=== PATIENT | female | born 1980 | race Caucasian/White ===

== ENCOUNTER 2016-10-24 15:46 | Emergency (ER) | payer OTHER ==
[2016-10-24 16:10] VITALS: BMI 29.7
[2016-10-24 16:14] VITALS: RESP 18; TEMP 98.4; O2SAT 99
--- NOTE | 2016-10-24 17:18 | ED PDOC ---
Arrival/HPI - General Chief Complaint: Female Genitourinary Time Seen by Provider: 10/24/16 16:19 Historian: Patient - History of Present Illness Narrative History of Present Illness (Text): 10/24/16 17:14 A 36 year old female, who denies any past medical history, presents to the emergency department complaining of bilateral flank pain for the past several days. Patient notes dysuria and mild nausea. She reports initially experiencing episodes of non-bloody diarrhea, which has fully resolved. Patient was prescribed Augmentin by PMD 4 days ago for possible UTI, which has mildly improved her symptoms. She does says that the back pain is worse with movement. Patient denies any fever, chills, vomiting, abdominal pain, hematuria , chest pain, shortness of breath, cough or any other complaints. PMD: Dr. Montana Time/Duration: Other (several days) Symptom Course: Unchanged Quality: Other Context: Other Past Medical History - Provider Review Nursing Documentation Reviewed: Yes - Infectious Disease Hx of Infectious Diseases: None - Psychiatric Hx Substance Use: No - Surgical History Other/Comment: R breast surgery - Anesthesia Hx Anesthesia: Yes Hx Anesthesia Reactions: No Hx Malignant Hyperthermia: No Family/Social History - Physician Review Nursing Documentation Reviewed: Yes Family/Social History: No Known Family HX Smoking Status: Never Smoked Hx Alcohol Use: No Hx Substance Use: No Hx Substance Use Treatment: No Allergies/Home Meds Allergies/Adverse Reactions: Allergies No Known Allergies Allergy (Verified 01/22/13 14:20) Review of Systems - Physician Review All systems were reviewed & negative as marked: Yes - Review of Systems Constitutional: absent: Fevers, Night Sweats Respiratory: absent: SOB, Cough Cardiovascular: absent: Chest Pain Gastrointestinal: Diarrhea (which has fully resolved), Nausea. absent: Abdominal Pain, Vomiting Genitourinary Female: Dysuria. absent: Hematuria Musculoskeletal: Back Pain (bilateral flank pain) Physical Exam Vital Signs Reviewed: Yes Vital Signs Temp Pulse Resp BP Pulse Ox 10/24/16 18:00 74 18 115/78 99 10/24/16 16:14 98.4 F 79 18 113/74 99 Temperature: Afebrile Blood Pressure: Normal Pulse: Regular Respiratory Rate: Normal Appearance: Positive for: Well-Appearing, Non-Toxic, Comfortable Pain Distress: None Mental Status: Positive for: Alert and Oriented X 3 - Systems Exam Head: Present: Atraumatic, Normocephalic Pupils: Present: PERRL Conjunctiva: Present: Normal Mouth: Present: Moist Mucous Membranes Pharnyx: Present: Normal. No: ERYTHEMA, EXUDATE Neck: Present: Normal Range of Motion Respiratory/Chest: Present: Clear to Auscultation, Good Air Exchange. No: Respiratory Distress, Accessory Muscle Use Cardiovascular: Present: Regular Rate and Rhythm, Normal S1, S2. No: Murmurs Abdomen: Present: Normal Bowel Sounds. No: Tenderness, Distention, Peritoneal Signs Back: Present: Normal Inspection Upper Extremity: Present: Normal Inspection. No: Cyanosis, Edema Lower Extremity: Present: Normal Inspection. No: Edema Neurological: Present: GCS=15, CN II-XII Intact, Speech Normal Skin: Present: Warm, Dry, Normal Color. No: Rashes Psychiatric: Present: Alert, Oriented x 3, Normal Insight, Normal Concentration Medical Decision Making ED Course and Treatment: 10/24/16 17:14 Impression: A 36 year old female with bilateral flank pain. Patient notes dysuria and mild nausea. Differential Diagnosis included but are not limited to: Musculoskeletal vs. Renal stone vs. Pyelonephritis Plan: -- Abdomen and pelvis CT -- Transvaginal ultrasound -- Labs -- Urine culture and Urinalysis -- Toradol -- Reassess and disposition Progress Notes: Report Date : 10/24/2016 17:53:16 PROCEDURE: CT Abdomen and Pelvis without intravenous contrast Dictator : MILA NASH MD IMPRESSION: No evidence of urinary calculus or urinary tract Report Date : 10/24/2016 18:08:10 Procedure: Transvaginal ultrasound Dictator : Katrina Bryant MD IMPRESSION: 1.5 cm probable uterine fibroid within the posterior fundus. Bilateral ovaries were not visualized. 10/24/16 18:40 Patient with noted history. Labs are unremarkable. CT and sono are nondiagnostic. She has no pelvic pain, so the non-visualization of the ovaries is unlikely diagnostic. Pain is worse with movement, so will treat with nsaid and muscle relaxant and have her continue the abx for uti, and she will f/u with pmd. - Lab Interpretations Lab Results: 10/24/16 17:05 10/24/16 17:05 Lab Results 10/24/16 17:05: Sodium 142, Potassium 3.5 L, Chloride 104, Carbon Dioxide 25, Anion Gap 17, BUN 6 L, Creatinine 0.5, Est GFR ( Amer) > 60, Est GFR (Non -Af Amer) > 60, Random Glucose 103, Calcium 9.5, Total Bilirubin 0.4, AST 33, ALT 29, Alkaline Phosphatase 65, Total Protein 8.1, Albumin 4.4, Globulin 3.7, Albumin/Globulin Ratio 1.2, Lipase 34 10/24/16 17:05: Urine Color Yellow, Urine Appearance Clear, Urine pH 7.0, Ur Specific [place] <= 1.005, Urine Protein Negative, Urine Glucose (UA) Negative, Urine Ketones Negative, Urine Blood Moderate H, Urine Nitrate Negative, Urine Bilirubin Negative, Urine Urobilinogen 0.2, Ur Leukocyte Esterase Negative, Urine RBC 2 - 5, Urine WBC 0 - 2, Ur Epithelial Cells 1 - 3 10/24/16 17:05: WBC 6.2, RBC 4.63, Hgb 12.7, Hct 38.4, MCV 82.9, MCH 27.4, MCHC 33.1, RDW 13.1, Plt Count 421, MPV 11.2 H, Gran % 62.2, Lymph % (Auto) 26.9, [place] % (Auto) 9.5 H, Eos % (Auto) 0.6 L, Baso % (Auto) 0.8, Gran # 3.86, Lymph # 1.7, [place] # 0.6, Eos # 0.0, Baso # 0.05 I have reviewed the lab results: Yes - RAD Interpretation Radiology Orders: 10/24/16 16:41 ABD & PELVIS W/O PO OR IV CONT [CT] Stat TRANSVAGINAL [US] Stat - Medication Orders Current Medication Orders: Discontinued Medications Ketorolac Tromethamine (Toradol) 30 mg IVP STAT STA Stop: 10/24/16 16:43 Last Admin: 10/24/16 17:19 Dose: 30 mg - Scribe Statement The provider has reviewed the documentation as recorded by the Sharonibmarry Pittman Provider Scribe Attestation: All medical record entries made by the Scribe were at my direction and personally dictated by me. I have reviewed the chart and agree that the record accurately reflects my personal performance of the history, physical exam, medical decision making, and the department course for this patient. I have also personally directed, reviewed, and agree with the discharge instructions and disposition. Disposition/Present on Arrival - Present on Arrival Any Indicators Present on Arrival: No History of DVT/PE: No History of Uncontrolled Diabetes: No Urinary Catheter: No History of Decub. Ulcer: No History Surgical Site Infection Following: None - Disposition Have Diagnosis and Disposition been Completed?: Yes Diagnosis: Back pain Disposition: HOME/ ROUTINE Disposition Time: 18:45 Patient Plan: Discharge Condition: GOOD Additional Instructions: Take the medications as prescribed. Avoid heavy lifting. Continue your antibiotics (augmentin) as previously prescribed. Follow up with your primary care doctor. Return to the emergency department if any new concerning symptoms. Prescriptions: Baclofen [Lioresal] 1 cap PO TID PRN #15 tab PRN Reason: Pain, Moderate (4-7) Naproxen [Naprosyn] 500 mg PO BID PRN #20 tab PRN Reason: Pain Pantoprazole [Protonix] 1 tab PO DAILY #20 ect Referrals: Wilfred Montana MD [Primary Care Provider] - Follow up with primary Forms: [place] (Amharic)
[2016-10-24 17:28] LABS: BASO # 0.05 K/mm3 (0.0-2.0); BASO % 0.8 % (0.0-3.0); EOS % 0.6 % (1.5-5.0); GRAN # 3.86 (1.4-6.5); GRAN % 62.2 % (50.0-68.0); HEMATOCRIT 38.4 % (36.0-48.0); LYMPH # 1.7 (1.2-3.4); LYMPH % 26.9 % (22.0-35.0); MEAN CELL VOLUME 82.9 fl (80.0-105.0); MEAN CORPUSCULAR HEMOGLOBIN 27.4 pg (25.0-35.0); MEAN CORPUSCULAR HGB CONC 33.1 g/dl (31.0-37.0); MEAN PLATELET VOLUME 11.2 fl (7.0-11.0); MONO # 0.6 (0.1-0.6); MONO % 9.5 % (1.0-6.0); RED CELL DISTRIBUTION WIDTH 13.1 % (11.5-14.5); WHITE BLOOD COUNT 6.2 10^3/ul (4.5-11.0)
[2016-10-24 17:29] LABS: URINE BILIRUBIN NEGATIVE (NEGATIVE); URINE BLOOD MODERATE (NEGATIVE); URINE GLUCOSE (UA) NEGATIVE (NEGATIVE); URINE KETONE NEGATIVE (NEGATIVE); URINE LEUKOCYTE ESTERASE NEGATIVE Leu/uL (NEGATIVE); URINE PROTEIN NEGATIVE mg/dL (<30 mg/dL); URINE UROBILINOGEN 0.2 E.U./dL (<1 E.U./dL)
[2016-10-24 17:30] LABS: URINE APPEARANCE CLEAR (CLEAR); URINE COLOR YELLOW (YELLOW)
[2016-10-24 17:39] LABS: ALB/GLOB RATIO 1.2 (1.1-1.8); ALKALINE PHOSPHATASE 65 U/L (38-133); ALT/SGPT 29 U/L (7-56); AST/SGOT 33 U/L (15-39); BILIRUBIN,TOTAL 0.4 mg/dL (0.2-1.3); BLOOD UREA NITROGEN 6 mg/dL (7-21); CALCIUM 9.5 mg/dL (8.4-10.5); CARBON DIOXIDE 25 mmol/L (21-33); CHLORIDE 104 mmol/L (98-107); GFR AFRICAN-AMERICAN > 60; GLUCOSE,RANDOM 103 mg/dL (70-110); LIPASE 34 U/L (23-300); POTASSIUM 3.5 mmol/L (3.6-5.0); SODIUM 142 mmol/L (132-148); TOTAL PROTEIN 8.1 g/dL (5.8-8.3); URINE WBC 0 - 2 /hpf (0-6)
--- NOTE | 2016-10-24 17:55 | CT ---
PROCEDURE: CT Abdomen and Pelvis without intravenous contrast HISTORY: flank pain - r/o renal stones COMPARISON: None. TECHNIQUE: Without contrast.. Contrast Dose: 0 Radiation dose: Total exam DLP = 392.42 mGy-cm. This CT exam was performed using one or more of the following dose reduction techniques: Automated exposure control, adjustment of the mA and/or kV according to patient size, and/or use of iterative reconstruction technique. FINDINGS: LOWER THORAX: Unremarkable. LIVER: Unremarkable. No gross lesion or ductal dilatation. GALLBLADDER AND BILE DUCTS: Unremarkable. PANCREAS: Unremarkable. No gross lesion or ductal dilatation. SPLEEN: Unremarkable. ADRENALS: Unremarkable. No mass. KIDNEYS AND URETERS: Unremarkable. No hydronephrosis. No solid mass. No renal calculus or ureteral calculus. VASCULATURE: Unremarkable. No aortic aneurysm. BOWEL: Unremarkable. No obstruction. No gross mural thickening. APPENDIX: Unremarkable. Normal appendix. PERITONEUM: Unremarkable. No free fluid. No free air. LYMPH NODES: Unremarkable. No enlarged lymph nodes. BLADDER: Unremarkable. REPRODUCTIVE: Normal uterus obstruction. BONES: No acute fracture. OTHER FINDINGS: None. IMPRESSION: No evidence of urinary calculus or urinary tract
--- NOTE | 2016-10-24 18:09 | US ---
HISTORY: pelvic pain COMPARISON: None available. TECHNIQUE: Transabdominal pelvic ultrasound FINDINGS: UTERUS: Measures 8.2 x 4.8 x 6.3 cm. Anteverted. 1.5 x 1.0 x 1.5 cm posterior fundal uterine fibroid. ENDOMETRIUM: Measures 6 mm in diameter. CERVIX: 9 mm nabothian cyst. RIGHT OVARY: Not visualized. LEFT OVARY: Not visualized. FREE FLUID: No significant free fluid noted. OTHER FINDINGS: None. IMPRESSION: 1.5 cm probable uterine fibroid within the posterior fundus. Bilateral ovaries were not visualized.
[2016-10-24 18:23] VITALS: BP 115/78; PULSE 74
== END 2016-10-24 19:01 | disposition home or self-care (01) ==
LOC: ED 15:46
DX: M54.9 Dorsalgia, unspecified (principal)
CPT/HCPCS: 74176; 76830; 80053; 81001; 83690; 85025; 87086; 96374; 99283; J1885

== ENCOUNTER 2017-01-29 17:46 | Emergency (ER) | payer OTHER ==
[2017-01-29 17:46] VITALS: BMI 29.7
[2017-01-29 18:16] VITALS: RESP 18; TEMP 98
[2017-01-29] MEDS ORDERED: Sodium Chloride 0.9% 500 ML IV STA (19:08)
--- NOTE | 2017-01-29 19:48 | ED PDOC ---
Arrival/HPI - General Chief Complaint: Abdominal Pain Time Seen by Provider: 01/29/17 18:23 Historian: Patient - History of Present Illness Narrative History of Present Illness (Text): 01/29/17 19:05 A 36 year old female presents to the emergency department complaining of intermittent burning type epigastric and mid abdominal pain, which occurs before and after eating. Patient notes she was diagnosed with H.Pylori 1 month ago. Patient states that she is currently taking omeprazole and is having difficulty eating due to pain. Also, she notes having noticed slight bright red streak in stool today. Denies of any nausea, vomiting, diarrhea, fever, urinary symptoms, or any other complaints. Also, patient denies any past abdominal surgeries. PMD: Dr. Vazquez Past Medical History - Provider Review Nursing Documentation Reviewed: Yes - Infectious Disease Hx of Infectious Diseases: None - Cardiac Hx Cardiac Disorders: No - Pulmonary Hx Respiratory Disorders: No - HEENT Hx HEENT Disorder: No - Renal Hx Renal Disorder: No - Endocrine/Metabolic Hx Endocrine Disorders: No - Hematological/Oncological Hx Blood Disorders: No - Integumentary Hx Dermatological Disorder: No - Musculoskeletal/Rheumatological Hx Musculoskeletal Disorders: No - Gastrointestinal Other/Comment: H.Pylori - Genitourinary/Gynecological Hx Genitourinary Disorders: No - Psychiatric Hx Psychophysiologic Disorder: No Hx Substance Use: No - Surgical History Hx Breast Biopsy: Yes (right breast) Other/Comment: R breast surgery - Anesthesia Hx Anesthesia: Yes Hx Anesthesia Reactions: No Hx Malignant Hyperthermia: No Family/Social History - Physician Review Nursing Documentation Reviewed: Yes Family/Social History: No Known Family HX Smoking Status: Never Smoked Hx Alcohol Use: No Hx Substance Use: No Hx Substance Use Treatment: No Allergies/Home Meds Allergies/Adverse Reactions: Allergies No Known Allergies Allergy (Verified 01/29/17 18:16) Home Medications: Home Meds Medication Instructions Recorded Confirmed Omeprazole 40 mg PO DAILY 01/29/17 01/29/17 Review of Systems - Physician Review All systems were reviewed & negative as marked: Yes - Review of Systems Constitutional: absent: Fatigue, Weight Change, Fevers Respiratory: absent: SOB, Cough, Sputum Cardiovascular: absent: Chest Pain, Palpitations, Edema Gastrointestinal: Abdominal Pain (epigastric intermittent burning sensation), Stool Changes (slight bright red streak in stool today). absent: Diarrhea, Vomiting Genitourinary Female: absent: Dysuria, Frequency, Hematuria Musculoskeletal: absent: Arthralgias, Back Pain, Neck Pain Skin: absent: Rash, Pruritis, Skin Lesions Physical Exam Vital Signs Reviewed: Yes Vital Signs Temp Pulse Resp BP Pulse Ox 01/29/17 21:32 98.0 F 63 18 117/72 100 01/29/17 18:08 98.0 F 87 18 114/77 98 Temperature: Afebrile Blood Pressure: Normal Pulse: Regular Respiratory Rate: Normal Appearance: Positive for: Well-Appearing Pain Distress: None Mental Status: Positive for: Alert and Oriented X 3 - Systems Exam Head: Present: Atraumatic, Normocephalic Pupils: Present: PERRL Extroacular Muscles: Present: EOMI Conjunctiva: Present: Normal Mouth: Present: Moist Mucous Membranes Pharnyx: Present: Normal Neck: Present: Normal Range of Motion. No: MIDLINE TENDERNESS Respiratory/Chest: Present: Clear to Auscultation, Good Air Exchange. No: Respiratory Distress, Accessory Muscle Use Cardiovascular: Present: Regular Rate and Rhythm, Normal S1, S2. No: Murmurs Abdomen: Present: Normal Bowel Sounds. No: Tenderness, Distention, Peritoneal Signs, McBurney's Point Tender, Rovsing's Sign Present, Hernias, Mass/ Organomegaly, Scars Rectal: Present: Other (guiaic negative) Back: Present: Normal Inspection. No: CVA Tenderness, Midline Tenderness Upper Extremity: Present: Normal Inspection. No: Cyanosis, Edema Lower Extremity: Present: Normal Inspection. No: Edema Neurological: Present: GCS=15, CN II-XII Intact, Speech Normal Skin: Present: Warm, Dry, Normal Color. No: Rashes Psychiatric: Present: Alert, Oriented x 3, Normal Insight, Normal Concentration Medical Decision Making ED Course and Treatment: 01/29/17 19:09 Impression: 36 year old female with intermittent mid-epigastric burning pain. No acute findings on physical exam. Plan: -- Abdominal Ultrasound -- Labs -- Pepcid -- IV Fluids -- Reassess and disposition Prior Visits: Notes and results from previous visits were reviewed. Patient was last seen in the emergency department on Progress Notes: On re-evaluation, patient is laying in bed comfortably in no acute distress, reports improvement of symptoms. Reports no abdominal pain or nausea at this time. On exam, abdomen remains soft with no tenderness, no guarding, no rebound. Labs reviewed and are wnl - wbc is nl and LFTs/lipase is not elevated. US still pending. On second re-evaluation, patient is sitting up comfortably and reports that the pain is recurring to the mid abdomen with no nausea or any other symptoms. On exam, abdomen still soft and nontender. US results are pending at this time. Patient medicated with po and toradol IV. On re-evaluation, patient reports improvement of her abdominal pain. US abdomen results reviewed and d/w the patient in great detail. Based on history, exam and diagnostic results plan will be for outpatient f/u. Dx of dyspepsia d/w the patient in great detail. Advised to f/u with her GI doctor, who she states that she already has an appointment with in the middle of this month. Advised to continue taking omeprazole and to take medication - , as prescribed. Return to the emergency room at any time for any new or worsening symptoms. Patient states she fully agrees with and understands discharge instructions. States that she agrees with the plan and disposition. Verbalized and repeated discharge instructions and plan. I have given the patient opportunity to ask any additional questions. - Lab Interpretations Lab Results: 01/29/17 19:45 01/29/17 19:45 Lab Results 01/29/17 19:45: Sodium 140, Potassium 3.2 L, Chloride 102, Carbon Dioxide 24, Anion Gap 17, BUN 8, Creatinine 0.6 L, Est GFR ( Amer) > 60, Est GFR (Non -Af Amer) > 60, Random Glucose 93, Calcium 9.7, Total Bilirubin 0.6, AST 24, ALT 30, Alkaline Phosphatase 68, Total Protein 8.5 H, Albumin 4.7, Globulin 3.8 , Albumin/Globulin Ratio 1.2, Lipase 50 01/29/17 19:45: WBC 7.9 D, RBC 4.90, Hgb 13.1, Hct 41.8, MCV 85.3, MCH 26.7, MCHC 31.3, RDW 13.5, Plt Count 384, MPV 12.3 H, Gran % 63.6, Lymph % (Auto) 27.2 , [place] % (Auto) 8.2 H, Eos % (Auto) 0.5 L, Baso % (Auto) 0.5, Gran # 5.03, Lymph # 2.2, [place] # 0.7 H, Eos # 0.0, Baso # 0.04 - RAD Interpretation Radiology Orders: 01/29/17 19:08 ABDOMEN COMPLETE [US] Stat - Medication Orders Current Medication Orders: Discontinued Medications Belladonna/Phenobarbital ( Elixir) 5 ml PO STAT STA Stop: 01/29/17 21:46 Last Admin: 01/29/17 22:02 Dose: 5 ml Famotidine (Pepcid) 20 mg IVP STAT STA Stop: 01/29/17 19:09 Last Admin: 01/29/17 19:47 Dose: 20 mg IVP Administration Document 01/29/17 19:47 ZAKIA (Rec: 01/29/17 19:47 ZAKIA [id number]) Charges for Administration # of IVP Administrations 1 Sodium Chloride (Sodium Chloride 0.9%) 500 mls @ 1,000 mls/hr IV .Q30M STA Stop: 01/29/17 19:37 Last Admin: 01/29/17 19:38 Dose: 1,000 mls/hr eMAR Start Stop Document 01/29/17 19:38 ZAKIA (Rec: 01/29/17 19:47 ZAKIA [id number]) Intravenous Solution Start Date 01/29/17 Start Time 19:47 End Date 01/29/17 End time 20:17 Total Infusion Time 30 Ketorolac Tromethamine (Toradol) 30 mg IVP STAT STA Stop: 01/29/17 21:46 Last Admin: 01/29/17 22:03 Dose: 30 mg MAR Pain Assessment Document 01/29/17 22:03 OCS (Rec: 01/29/17 22:03 OCS [id number]) Pain Reassessment Is this a pain reassessment? Yes Sleep Is patient sleeping during reassessment? No Presence of Pain Presence of Pain Yes Pain Scale Used Pain Scale Used Numeric Location Left, Right or Bilateral Left Upper or Lower Lower Pain Location Body Site Abdomen IVP Administration Document 01/29/17 22:03 OCS (Rec: 01/29/17 22:03 OCS [id number]) Charges for Administration # of IVP Administrations 1 Potassium Chloride (Potassium Chloride Oral Soln) 40 meq PO STAT STA Stop: 01/29/17 21:31 Last Admin: 01/29/17 21:35 Dose: 40 meq - PA / DOPE FIRER / Resident Statement MD/DO has reviewed & agrees with the documentation as recorded. - Scribe Statement The provider has reviewed the documentation as recorded by the Grazyna Camara Provider Scribe Attestation: All medical record entries made by the Scribe were at my direction and personally dictated by me. I have reviewed the chart and agree that the record accurately reflects my personal performance of the history, physical exam, medical decision making, and the department course for this patient. I have also personally directed, reviewed, and agree with the discharge instructions and disposition. Disposition/Present on Arrival - Present on Arrival Any Indicators Present on Arrival: No History of DVT/PE: No History of Uncontrolled Diabetes: No Urinary Catheter: No History of Decub. Ulcer: No History Surgical Site Infection Following: None - Disposition Have Diagnosis and Disposition been Completed?: Yes Diagnosis: Abdominal pain, Dyspepsia Disposition: HOME/ ROUTINE Disposition Time: 21:46 Patient Plan: Discharge Condition: STABLE Discharge Instructions (ExitCare): Chronic Indigestion (ED), Abdominal Pain (ED ) Print Language: BRAZILIAN Additional Instructions: Thank you for letting us take care of you today. You were treated for abdominal pain, dyspepsia. The emergency medical care you received today was directed at your acute symptoms. If you were prescribed any medication, please fill it and take as directed. It may take several days for your symptoms to resolve. Return to the Emergency Department if your symptoms worsen, do not improve, or if you have any other problems. Please contact your doctor in 2 days for re-evaluation and follow up / or call one of the physicians/clinics you have been referred to that are listed on the Patient Visit Information form that is included in your discharge packet. Bring any paperwork you were given at discharge with you along with any medications you are taking to your follow up visit. Our treatment cannot replace ongoing medical care by a primary care provider (PCP) outside of the emergency department. Thank you for allowing the [facility] team to be part of your care today. Prescriptions: Atropine/Hyoscyamine [] 1 tab PO TID PRN #20 tab PRN Reason: Dyspepsia Referrals: Alondra Vazquez MD [Primary Care Provider] - Follow up with primary Forms: [facility] ([place] Citizen), SCHOOL NOTE
[2017-01-29 20:01] LABS: BASO # 0.04 K/mm3 (0.0-2.0); BASO % 0.5 % (0.0-3.0); EOS % 0.5 % (1.5-5.0); GRAN # 5.03 (1.4-6.5); GRAN % 63.6 % (50.0-68.0); HEMATOCRIT 41.8 % (36.0-48.0); LYMPH # 2.2 (1.2-3.4); LYMPH % 27.2 % (22.0-35.0); MEAN CELL VOLUME 85.3 fl (80.0-105.0); MEAN CORPUSCULAR HEMOGLOBIN 26.7 pg (25.0-35.0); MEAN CORPUSCULAR HGB CONC 31.3 g/dl (31.0-37.0); MEAN PLATELET VOLUME 12.3 fl (7.0-11.0); MONO # 0.7 (0.1-0.6); MONO % 8.2 % (1.0-6.0); RED CELL DISTRIBUTION WIDTH 13.5 % (11.5-14.5); WHITE BLOOD COUNT 7.9 10^3/ul (4.5-11.0)
[2017-01-29 20:12] LABS: ALKALINE PHOSPHATASE 68 U/L (38-126); ALT/SGPT 30 U/L (7-56); AST/SGOT 24 U/L (14-36); BILIRUBIN,TOTAL 0.6 mg/dL (0.2-1.3); BLOOD UREA NITROGEN 8 mg/dL (7-21); CALCIUM 9.7 mg/dL (8.4-10.5); CARBON DIOXIDE 24 mmol/L (21-33); CHLORIDE 102 mmol/L (98-107); GFR AFRICAN-AMERICAN > 60; GLUCOSE,RANDOM 93 mg/dL (70-110); LIPASE 50 U/L (23-300); POTASSIUM 3.2 mmol/L (3.6-5.0); SODIUM 140 mmol/L (132-148); TOTAL PROTEIN 8.5 g/dL (5.8-8.3)
[2017-01-29 20:21] LABS: ALB/GLOB RATIO 1.2 (1.1-1.8)
--- NOTE | 2017-01-29 20:43 | US ---
EXAM: US Abdomen Complete CLINICAL HISTORY: 36 years old, female; Pain; Abdominal pain; Colic; Additional info: Abdominal pain, R/O biliary colic TECHNIQUE: Real-time ultrasound of the abdomen (complete) with image documentation. COMPARISON: CT - ABD PELVIS W/O PO OR IV CONT 2016-10-24 17:18 FINDINGS: Liver: Unremarkable in echogenicity and size measuring 10 cm in longitudinal dimension. No intrahepatic bile duct dilation. Gallbladder: No acute findings. No gallstones. Common bile duct: No stones. No dilation, measuring 4 mm. Pancreas: Visualization of the pancreas is limited by overlying bowel gas. Right kidney: Unremarkable echogenicity and size measuring 10.8 x 4.2 x 5.4 cm. No hydronephrosis. Left Kidney: Unremarkable in echogenicity and size measuring 10.1 x 5.7 x 6.2 cm. No hydronephrosis. Spleen: Unremarkable in echogenicity and size measuring 9.1 cm in longitudinal dimension. Aorta: Unremarkable. Inferior vena cava: patent. IMPRESSION: Limited evaluation of the pancreas, secondary to overlying bowel gas. Otherwise, unremarkable sonographic evaluation of the abdomen, as detailed above.
[2017-01-29] MEDS ORDERED: Potassium Chloride 40 mEq/30 ml LIQ UD PO STA (21:30)
[2017-01-29 21:33] VITALS: BP 117/72; PULSE 63; O2SAT 100
[2017-01-29] MEDS ORDERED: Atrop/Hyosc/Scopal/PB Elixir (120 ml) PO STA (21:45)
== END 2017-01-29 22:04 | disposition home or self-care (01) ==
LOC: ED 17:46
DX: R10.13 Epigastric pain (principal)
CPT/HCPCS: 76700; 80053; 83690; 85025; 96374; 96375; 99284; J1885; J3480; J7040

== ENCOUNTER 2018-05-08 13:52 | Emergency (ER) | payer OTHER ==
[2018-05-08 13:53] VITALS: BMI 29.7
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
[2018-05-08 14:22] VITALS: RESP 18; TEMP 98.1
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
[2018-05-08 18:17] VITALS: BP 121/72; PULSE 80; O2SAT 99
== END 2018-05-08 18:25 | disposition home or self-care (01) ==
LOC: ED 13:52
DX: T14.8XXA Other injury of unspecified body region, initial encounter (principal); V03.90XA Pedestrian on foot injured in collision with car, pick-up truck or van, unspecified whether traffic or nontraffic accident, initial encounter; Y93.01 Activity, walking, marching and hiking; Y92.410 Unspecified street and highway as the place of occurrence of the external cause
CPT/HCPCS: 73522; 73552; 81025; 96372; 99284; J1885